=== PATIENT | male | born 1980 | race Caucasian/White ===

== ENCOUNTER 2017-06-13 13:43 | Emergency (ER) | payer SELFPAY ==
[~2017-06-13] VITALS: Ht 170.2 cm; Wt 110.0 kg
[2017-06-13 13:45] VITALS: BP 153/74; PULSE 88; RESP 24; O2SAT 100
[2017-06-13] MEDS ORDERED: KETOROLAC TROMETHAMINE 30 MG/ML (IVP) VIAL IVP ONE (15:00)
[2017-06-13] MEDS ORDERED: ONDANSETRON HCL 4 MG/2 ML VIAL IVP ONE (15:00)
[2017-06-13] MEDS ORDERED: SODIUM CHLORIDE 0.9% FLUSH 10 ML FLUSH IVF PRN (15:00)
[2017-06-13] MEDS ORDERED: HYDROmorphone HCL PF 1 MG/ML VIAL IVS ONE (15:00)
--- NOTE | 2017-06-13 15:34 | PD ---
HPI . Right flank pain Chief Complaint: Flank/Kidney Pain Time Seen by Provider: 14:59 Travel History International Travel<30 days: No Contact w/Intl Traveler<30days: No Traveled to known affect area: No History of Present Illness HPI Patient presents with the acute onset of right flank pain. He states it actually started as nausea. He quickly developed the flank pain following the onset of nausea. The pain was severe and associated with diaphoresis. He denies any associated urinary symptoms. He denies any previous similar history. He states that he could not find a comfortable position. He notes no exacerbating or relieving factors. PFSH Past Medical History Medical History: Denies Significant Hx Past Surgical History Surgical History: No Previous Surgery Social History Alcohol Use: No Tobacco Use: Yes Substance Use: No Allergies-Medications (Allergen,Severity, Reaction): Coded Allergies: No Known Allergies (Unverified , 06/13/17) Reported Meds & Prescriptions Reported Meds & Active Scripts Active Flomax (Tamsulosin HCl) 0.4 Mg Cap 0.4 Mg PO HS Ibuprofen 800 Mg Tab 800 Mg PO Q8H PRN Phenergan (Promethazine HCl) 25 Mg Tablet 25 Mg PO Q6H PRN Percocet (Oxycodone-Acetaminophen) 5-325 mg Tab 1 Tab PO Q4H PRN Review of Systems Except as stated in HPI: all other systems reviewed are Neg General / Constitutional: Positive: Other (diaphoresis), No: Fever, Chills Gastrointestinal: Positive: Nausea, Vomiting, Abdominal Pain, No: Diarrhea Genitourinary: Positive: Flank Pain, No: Urgency, Frequency, Dysuria, Hematuria Physical Exam Narrative GENERAL: Awake and alert and in no acute distress. SKIN: Warm and dry. HEAD: Atraumatic. Normocephalic. EYES: Pupils equal and round. Extraocular movements are intact. ENT: No nasal bleeding or discharge. Mucous membranes pink and moist. NECK: Trachea midline. Neck is supple. CARDIOVASCULAR: Regular rate and rhythm. RESPIRATORY: No accessory muscle use. GASTROINTESTINAL: Abdomen soft, non-tender, nondistended. No CVA tenderness. MUSCULOSKELETAL: No obvious deformities. No edema. NEUROLOGICAL: Awake and alert. No obvious cranial nerve deficits. Motor grossly within normal limits. Normal speech. PSYCHIATRIC: Appropriate mood and affect; insight and judgment normal. Data Data Last Documented VS Vital Signs Date Time Temp Pulse Resp B/P Pulse Ox O2 Delivery O2 Flow Rate FiO2 06/13/17 13:45 88 24 153/74 100 Room Air Orders Urinalysis - C+S If Indicated (06/13/17 14:59) Ct Abd/Pel W/O Iv Contrast (06/13/17 14:59) Ketorolac Inj (Toradol Inj) (06/13/17 15:00) Ondansetron Inj (Zofran Inj) (06/13/17 15:00) Sodium Chloride 0.9% Flush (Ns Flush) (06/13/17 15:00) Hydromorphone Pf Inj (Dilaudid Pf Inj) (06/13/17 15:00) Labs Laboratory Tests Test 06/13/17 13:55 Urine Color YELLOW Urine Turbidity CLEAR Urine pH 5.0 Urine Specific [place] 1.029 Urine Protein TRACE mg/dL Urine Glucose (UA) NEG mg/dL Urine Ketones 40 mg/dL Urine Occult Blood TRACE Urine Nitrite NEG Urine Bilirubin NEG Urine Urobilinogen LESS THAN 2.0 MG/DL Urine Leukocyte Esterase NEG Urine RBC 1 /hpf Urine WBC 1 /hpf Urine Mucus FEW /lpf Microscopic Urinalysis Comment CULT NOT INDICATED MDM Medical Decision Making Medical Screen Exam Complete: Yes Emergency Medical Condition: Yes Differential Diagnosis Differential diagnosis of flank pain includes but is not limited to kidney stone , pyelonephritis, musculoskeletal pain, PE Narrative Course Patient presents with the acute onset of right flank pain. CT and UA have been ordered. He has been treated with Dilaudid, Toradol and Zofran. He is pain- free following this treatment. CT>>A 2 mm stone is seen involving the right ureterovesical junction. This is felt to be within the intramural segment of the right ureter. There is resulting mild hydronephrosis and hydroureter. No perinephric stranding or perinephric fluid collections. Left kidney is unremarkable. No stones on the left. UA shows no evidence of infection. Diagnosis Primary Impression: Right flank pain Additional Impression: Kidney stone on right side Patient Instructions: General Instructions, Kidney Stones (DC) Additional Instructions: Your kidney stone is small and will probably pass without difficulty. However, if you have any problems at all, follow up with the urologist in [place]. Med/Other Pt SpecificInfo: Prescription(s) given Scripts Tamsulosin (Flomax)0.4 Mg Cap0.4 Mg PO HS #30 CAP Ref 0 Prov:Gisella Barbosa MD 06/13/17 Ibuprofen 800 Mg [id number] Mg PO Q8H PRN (Pain/Inflammation) #60 TAB Ref 0 Prov:Gisella Barbosa MD 06/13/17 Promethazine (Phenergan)25 Mg [id number] Mg PO Q6H PRN (NAUSEA OR VOMITING) #12 TAB Ref 0 Prov:Gisella Barbosa MD 06/13/17 Oxycodone-Acetaminophen (Percocet)5-325 mg Tab1 Tab PO Q4H PRN (PAIN) #12 TAB Ref 0 Prov:Gisella Barbosa MD 06/13/17 Disposition: 01 DISCHARGE HOME Condition: Stable Gisella Barbosa MD Jun 13, 2017 15:34
--- NOTE | 2017-06-13 15:42 | RADRPT ---
EXAM DATE/TIME: 06/13/2017 15:22 [facility] COMPARISON: No previous studies available for comparison. INDICATIONS : Right flank pain today. ORAL CONTRAST: No oral contrast ingested. RADIATION DOSE: 8.52 CTDIvol (mGy) MEDICAL HISTORY : None SURGICAL HISTORY : None. ENCOUNTER: Initial ACUITY: 1 day PAIN SCALE: 0/10 LOCATION: Right flank TECHNIQUE: Volumetric scanning of the abdomen and pelvis was performed. Using automated exposure control and ad justment of the mA and/or kV according to patient size, radiation dose was kept as low as reasonably achievable to obtain optimal diagnostic quality images. DICOM format image data is available electro nically for review and comparison. FINDINGS: LOWER LUNGS: The visualized lower lungs are clear. LIVER: Homogeneous density without lesion. There is no dilation of the biliary tree. No calcified gallston es. SPLEEN: Normal size without lesion. PANCREAS: Within normal limits. KIDNEYS: A 2 mm stone is seen involving the right ureterovesical junction. This is felt to be within the intra mural segment of the right ureter. There is resulting mild hydronephrosis and hydroureter. No perinep hric stranding or perinephric fluid collections. Left kidney is unremarkable. No stones on the left. ADRENAL GLANDS: Within normal limits. VASCULAR: There is no aortic aneurysm. BOWEL/MESENTERY: The stomach, small bowel, and colon demonstrate no acute abnormality. There is no free intraperitone al air or fluid. ABDOMINAL WALL: Within normal limits. RETROPERITONEUM: There is no lymphadenopathy. BLADDER: No wall thickening or mass. REPRODUCTIVE: Within normal limits. INGUINAL: There is no lymphadenopathy or hernia. MUSCULOSKELETAL: Within normal limits for patient age. CONCLUSION: 1. 2 mm stone involving the intramural segment of the distal right ureter at the UVJ. There is mild h ydronephrosis and hydroureter. No perinephric fluid collections. Antione Mackey Jr., MD on June 13, 2017 at 15:37 Board Certified Radiologist. This report was verified electronically.
[2017-06-13] MEDS ORDERED: PROM25TA10 PO (15:45)
[2017-06-13] MEDS ORDERED: PERC5TAB12 PO (15:45)
[2017-06-13] MEDS ORDERED: IBUP800T23 PO (15:45)
[2017-06-13] MEDS ORDERED: TAMS5CAP PO (15:45)
[2017-06-13 15:58] LABS: BLOOD, URINE TRACE (NEG); COMMENT (UR) CULT NOT INDICATED; CULTURE IF INDICATED CULT NOT INDICATED; GLUCOSE,URINE NEG (NEG); KETONE, URINE 40 mg/dL (NEG); MUCUS URINE FEW /lpf (OCC); NITRITE,URINE NEG (NEG); URINE COLOR YELLOW (YELLW/STRAW)
[2017-06-13 17:10] VITALS: RESP 17
== END 2017-06-13 17:13 | disposition home or self-care (01) ==
LOC: NEPD 13:43
DX: R10.9 Unspecified abdominal pain (principal); N20.0 Calculus of kidney; N13.30 Unspecified hydronephrosis; N13.4 Hydroureter; R11.0 Nausea; Z79.899 Other long term (current) drug therapy; Z72.0 Tobacco use
CPT/HCPCS: 74176; 81001; 96374; 96375; 99285; J1170; J1885; J2405